=== PATIENT | female | born 1950 | race Caucasian/White ===

== ENCOUNTER 2016-08-23 10:17 | Emergency (ER) | payer BC ==
--- NOTE | ~2016-08-23 | MR134 ---
[facility] A Service of [facility] & [facility] RADIOLOGY TEXT RESULTS PATIENT: CONNIE JACKSON LOCATION: [facility] : 54 UNIT #: [id number] AGE: [address]: Daniel Davis MD SEX: F ORDER DR: [id number] [facility] [address] [place], [place] [address] [id number] E MR#: [id number] Acc #: [id number] NAME: CONNIE JACKSON : 1950 SEX: F STUDY DATE/TIME: 08/23/2016 12:50 UNIT: [facility] ROOM: STUDY DESCRIPTION: MR MRA Neck Wo Contrast Attending Physician: Daniel Davis M.D. Ordering Physician: Daniel Davis M.D. Primary Care Physician: Jacek Stoddard M.D. MRI CENTER REPORT This report is preliminary unless electronic signature is present. EXAM Neck MRA, no contrast, 08/23/2016. PROCEDURE Axial gmlz-pr-egayom neck MRA with three-dimensional reformats HISTORY Left facial weakness and visual disturbance for 3 days. FINDINGS Both vertebral arteries and both common internal and external carotid arteries are patent. Allowing for slight motion, there is no evidence of stenosis in either internal carotid by NASCET criteria. There is right vertebral dominance. IMPRESSION Normal neck MRA. Dictated by... Jhoan Weaver M.D. THIS IS AN ELECTRONICALLY VERIFIED REPORT Jhoan Weaver M.D. at 08/24/2016 10:26 AM AMLISSA/yomaira TD: 08/23/2016 18:36 JOB #: [id number] MRI CENTER REPORT Page 1 of 1 COPY
--- NOTE | ~2016-08-23 | MR18 ---
[facility] A Service of [facility] RADIOLOGY TEXT RESULTS PATIENT: CONNIE JACKSON LOCATION: [facility] : 54 UNIT #: [id number] AGE: [address]: Daniel Davis MD SEX: F ORDER DR: [id number] [facility] [address] [place], [place] [address] [id number] E MR#: [id number] Acc #: [id number] NAME: CONNIE JACKSON : 1950 SEX: F STUDY DATE/TIME: 08/23/2016 12:03 UNIT: [facility] ROOM: STUDY DESCRIPTION: MR Brain Wo Contrast Attending Physician: Daniel Davis M.D. Ordering Physician: Daniel Davis M.D. Primary Care Physician: Jacek Stoddard M.D. MRI CENTER REPORT This report is preliminary unless electronic signature is present. EXAM Brain MRI without contrast. DATE OF STUDY 08/23/2016 PROCEDURE Routine brain MRI without contrast. CLINICAL HISTORY Headache with visual disturbance and left facial weakness for 3 days. FINDINGS There is no MR evidence of restricted diffusion. There is no MR evidence of acute intracranial hemorrhage. The brain is structurally normal and brain parenchymal signal is normal, with the exception of a single small focus or pair of foci of abnormal T2 signal in the right mid frontal periventricular white matter. This is diffusion negative. Normal flow voids are seen in the cerebral vessels. Bone marrow signal is normal. The extracranial soft tissues are normal. IMPRESSION Single focus of nonspecific white matter change in the right posterior frontal subcortical white matter, diffusion negative. No evidence of acute ischemia or other acute abnormality. Dictated by... Jhoan Weaver M.D. THIS IS AN ELECTRONICALLY VERIFIED REPORT Jhoan Weaver M.D. at 08/24/2016 10:26 AM [facility] A Service of [facility] RADIOLOGY TEXT RESULTS PATIENT: CONNIE JACKSON LOCATION: [facility] : 54 UNIT #: [id number] AGE: [address]: Daniel Davis MD SEX: F ORDER DR: [place] TD: 08/23/2016 18:25 JOB #: [id number] MRI CENTER REPORT Page 1 of 1 COPY
--- NOTE | ~2016-08-23 | EKG ---
PATIENT: CONNIE JACKSON UNIT #: [id number] Ventricular Rate: 74 BPM Atrial Rate: 74 BPM P-R Interval: 154 ms QRS Duration: 92 ms Q-T Interval: 398 ms QTC Calculation(Bezet): 441 ms P [place]: 69 degrees Calculated R [place]: 5 degrees Calculated T [place]: 10 degrees Diagnosis Line: Normal sinus rhythm Diagnosis Line: Non Specific ST Changes- Abnormality Diagnosis Line: No previous ECGs available Diagnosis Line: Confirmed by MADELINE CORBETT MD ([id number]) on Diagnosis Line: 08/23/2016 4:27:16 PM INTERPRETING MD: GIBRAN
--- NOTE | ~2016-08-23 | CT71 ---
[facility] A Service of [facility] RADIOLOGY TEXT RESULTS PATIENT: CONNIE JACKSON LOCATION: [facility] : 54 UNIT #: [id number] AGE: [address]: Daniel Davis MD SEX: F ORDER DR: [id number] [facility] [address] [place], [place] [address] [id number] E MR#: [id number] Acc #: [id number] NAME: CONNIE JACKSON : 1950 SEX: F STUDY DATE/TIME: 08/23/2016 11:31 UNIT: [facility] ROOM: STUDY DESCRIPTION: CT Head Wo Contrast Attending Physician: Daniel Davis M.D. Ordering Physician: Daniel Davis M.D. Primary Care Physician: Jacek Stoddard M.D. MEDICAL IMAGING REPORT This report is preliminary unless electronic signature is present EXAM Head CT no contrast, 08/23/2016 COMPARISON None HISTORY Left facial weakness. Headache and visual disturbance since August 20, 2016. PROCEDURE Routine unenhanced head CT. This CT exam was performed with one or more of the following radiation dose reduction techniques: automatic exposure control, adjustment of mA and/or kV according to patient size, and iterative reconstruction. FINDINGS Axial noncontrast images were obtained from the skull base to the vertex. Ventricular size and configuration are normal. There is no evidence of acute infarct or hemorrhage. There are no extra-axial fluid collections. No mass lesion or mass effect is seen. There are no skull fractures. IMPRESSION Normal noncontrast head CT. Dictated by... Jhoan Weaver M.D. THIS IS AN ELECTRONICALLY VERIFIED REPORT Jhoan Weaver M.D. at 08/24/2016 10:25 AM MALISSA/angel [facility] A Service of [facility] & [facility] RADIOLOGY TEXT RESULTS PATIENT: CONNIE JACKSON LOCATION: [facility] : 54 UNIT #: [id number] AGE: [address]: Daniel Davis MD SEX: F ORDER DR: TD: 08/23/2016 17:15 JOB #: [id number] MEDICAL IMAGING REPORT Page 1 of 1 COPY
--- NOTE | ~2016-08-23 | MR122 ---
[facility] A Service of [facility] RADIOLOGY TEXT RESULTS PATIENT: CONNIE JACKSON LOCATION: [facility] : 54 UNIT #: [id number] AGE: [address]: Daniel Davis MD SEX: F ORDER DR: [id number] [facility] [address] [place], [place] [address] [id number] E MR#: [id number] Acc #: [id number] NAME: CONNIE JACKSON. : 1950 SEX: F STUDY DATE/TIME: 08/23/2016 12:39 UNIT: [facility] ROOM: STUDY DESCRIPTION: MR MRA Head Wo Contrast Attending Physician: Daniel Davis M.D. Ordering Physician: Daniel Davis M.D. Primary Care Physician: Jacek Stoddard M.D. MRI CENTER REPORT This report is preliminary unless electronic signature is present. EXAM Head MRA, no contrast; 08/23/2016. PROCEDURE Axial anmy-mu-qxijck head MRA with three-dimensional reformats. COMPARISON STUDIES None. CLINICAL HISTORY Headache, left facial pain and weakness, visual disturbance. Symptoms for 3 days. FINDINGS Both internal carotid arteries, both vertebral arteries and the basilar artery are patent. There is no evidence of intracranial aneurysm or flow-limiting stenosis. Both posterior communicators and the anterior communicator appear patent. There is symmetric runoff in the anterior middle and posterior cerebral distributions. IMPRESSION Normal head MRA without contrast. Dictated by... Jhoan Weaver M.D. THIS IS AN ELECTRONICALLY VERIFIED REPORT Jhoan Weaver M.D. at 08/24/2016 10:26 AM MALISSA/tomeka TD: 08/23/2016 18:43 JOB #: [id number] [facility] A Service [facility] RADIOLOGY TEXT RESULTS PATIENT: CONNIE JACKSON LOCATION: [facility] : 54 UNIT #: [id number] AGE: [address]: Daniel Davis MD SEX: F ORDER DR: MRI CENTER REPORT Page 1 of 1 COPY
[2016-08-23 10:50] LABS: BASOPHIL# 0.1 X10e3 (0-0.3); BASOPHIL% 1.2 % (0-2.5); EOSINOPHIL# 0.3 X10e3 (0-0.7); EOSINOPHIL% 5.2 % (0.0-7.0); HEMATOCRIT 43.5 % (35.0-45.0); HEMOGLOBIN 14.4 gm/dL (12.0-16.0); LYMPHOCYTE# 1.8 X10e3 (1.0-3.5); MEAN CELL VOLUME 89.1 FL (83-96); MEAN CORPUSCULAR HEMOGLOBIN 29.4 PG (28-34); MEAN PLATELET VOLUME 7.9 FL (6.5-11.5); MONOCYTE# 0.3 X10e3 (0-1.0); MONOCYTE% 4.3 % (3.0-12.0); NEUTROPHIL# 3.8 X10e3 (1.5-7.1); NEUTROPHIL% 60.3 % (40-75); PLATELET COUNT 294 X10e3 (140-420); RED BLOOD COUNT 4.88 X10e (3.90-5.30); RED CELL DISTRIBUTION WIDTH 13.1 % (11.0-15.5); WHITE BLOOD COUNT 6.3 X10e3 (4.0-10.5)
[2016-08-23 10:53] LABS: DIFF IND NO
[2016-08-23 11:05] LABS: PARTIAL THROMBOPLASTIN TIME 28.1 SECONDS (23.5-31.3); PROTHROMBIN TIME (PATIENT) 10.5 SECONDS (10.0-11.7)
[2016-08-23 11:51] LABS: ALBUMIN SERUM 3.9 g/dL (3.5-5.0); BILIRUBIN, DIRECT 0.1 mg/dL (0.0-0.2); BILIRUBIN,INDIRECT 0.4 mg/dL (0.0-0.9); BILIRUBIN,TOTAL 0.5 mg/dL (0.2-2.0); BUN/CREATININE RATIO 14.28; CALCIUM SERUM 9.2 mg/dL (8.4-10.2); CREATININE SERUM 0.7 mg/dL (0.6-1.4); GLOM FILT RATE Estimated 92.2 mL/min (>60); POTASSIUM 3.9 mmol/L (3.5-5.1); PROTEIN TOTAL SERUM 7.2 g/dL (6.0-8.3)
== END 2016-08-23 14:25 | disposition home or self-care (01) ==
LOC: CED 10:17
PROVIDERS: Emergency Medicine
DX: R51 Headache (principal); R42 Dizziness and giddiness; R11.0 Nausea; Z88.2 Allergy status to sulfonamides; Z88.5 Allergy status to narcotic agent; Z88.6 Allergy status to analgesic agent; Z88.8 Allergy status to other drugs, medicaments and biological substances
CPT/HCPCS: 36415; 70450; 70544; 70547; 70551; 80048; 80076; 82947; 85025; 85610; 85730; 93005; 96374; 99284; J2060